=== PATIENT | female | born 1980 | race Caucasian/White ===

== ENCOUNTER 2018-06-26 03:13 | Emergency (ER) | payer BC ==
[~2018-06-26] VITALS: Ht 162.6 cm; Wt 65.8 kg
[2018-06-26 03:27] VITALS: BP_SYST 122
--- NOTE | 2018-06-26 03:27 | NUR ---
Patient to ER bed 7 to gown for evaluation. Side rails up. Report given to DMITRI Amaya.
--- NOTE | 2018-06-26 03:27 | NUR ---
Pt C/O pelvic pain x 4 days. Pt has hx of fibroids and ovarian cysts. Pain is 8/10 and has taken Tylenol with minimal relief. Pt denies any nausea, vomiting, or fever. Vitals are stable will continue to monitor.
--- NOTE | 2018-06-26 03:29 | NUR ---
ER Dr. Oleary at bedside examining patient.
--- NOTE | 2018-06-26 03:35 | NUR ---
# 20 gauge angiocath placed to LAC. Use of asceptic technique. Opsite placed over site. Blood return noted. Blood for lab drawn from site. Flushed with 10 cc of normal saline. No evidence of infiltration noted. Patient tolerated well.
--- NOTE | 2018-06-26 03:38 | NUR ---
Pt began to experience nausea. Dr. Oleary notified, Dean ODT given.
[2018-06-26] MEDS ORDERED: KETOROLAC TROMETHAMINE 30 MG VIAL IVP ONE (03:45)
[2018-06-26 03:52] LABS: BILIRUBIN,URINE NEGATIVE (NEGATIVE); BLOOD, URINE NEGATIVE (NEGATIVE); CLARITY/URINE CLEAR (CLEAR); COLOR,URINE YELLOW (YELLOW); GLUCOSE,URINE NEGATIVE (NEGATIVE); KETONES,URINE NEGATIVE (NEGATIVE); LEUKOCYTE ESTERASE ,URINE NEGATIVE (NEGATIVE); NITRITE, URINE NEGATIVE (NEGATIVE); PROTEIN URINE NEGATIVE (NEGATIVE); UROBILINOGEN,URINE 0.2 (0.2-1.0)
[2018-06-26] MEDS ORDERED: ONDANSETRON 4 MG ODT TAB ONE (03:55)
[2018-06-26] MEDS ORDERED: ONDANSETRON 4 MG ODT TAB PO ONE (04:00)
[2018-06-26 04:08] LABS: BASOPHILS % (AUTO) 0.3 % (0.0-2.0); EOSINOPHILS # (AUTO) 0.2 K/uL (0.0-0.4); EOSINOPHILS % (AUTO) 1.6 % (0.0-4.0); HEMATOCRIT 40.3 % (36-48); HEMOGLOBIN 13.6 g/dL (12.0-16.0); LYMPHOCYTES # (AUTO) 1.5 K/uL (1.0-5.5); LYMPHOCYTES % (AUTO) 11.8 % (20.5-51.5); MEAN CORPUSCULAR HEMOGLOBIN 30 pg (27-31); MEAN CORPUSCULAR HGB CONC 34 % (32-36); MEAN CORPUSCULAR VOLUME 89 fL (79.0-98.0); MONOCYTES # (AUTO) 0.8 K/uL (0.0-1.0); MONOCYTES % (AUTO) 6.1 % (1.7-9.3); NEUTROPHILS # (AUTO) 10.2 K/uL (1.8-7.7); NEUTROPHILS % (AUTO) 80.2 % (40.0-70.0); PLATELET COUNT (AUTO) 332 K/uL (130-430); RED BLOOD CELL COUNT(AUTO) 4.53 MIL/uL (4.2-6.2); RED CELL DISTRIBUTION WIDTH 12.7 % (9.0-15.0); WHITE BLOOD COUNT (AUTO) 12.7 K/uL (4.8-10.8)
[2018-06-26 04:15] LABS: CALCIUM 8.7 mg/dL (8.4-11.0); CREATININE 0.61 mg/dL (0.55-1.30); POTASSIUM 3.4 mmol/L (3.5-5.1)
[2018-06-26 04:20] LABS: ALBUMIN 3.6 g/dL (3.4-4.8); TOTAL BILIRUBIN 0.6 mg/dL (0.0-1.0)
--- NOTE | 2018-06-26 04:25 | NUR ---
Patient transported to radiology, accompanied by rad staff.
--- NOTE | 2018-06-26 05:05 | NUR ---
Returned from radiology, back to [facility].
--- NOTE | 2018-06-26 05:48 | NUR ---
ER Dr. Oleary at bedside explaining results to patient.
[2018-06-26 05:58] VITALS: BP_SYST 99
--- NOTE | 2018-06-26 05:58 | NUR ---
Patient given written and verbal discharge instructions and verbalizes understanding. ER MD discussed with patient the results and treatment provided. Patient in stable condition. ID arm band removed. IV catheter removed intact and dressing applied, no active bleeding. Rx of [place] given. Patient educated on pain management and to follow up with PMD. Pain Scale 2/10. Opportunity for questions provided and answered. Medication side effect fact sheet provided.
--- NOTE | 2018-06-26 12:14 | NUR ---
Radiology discrepancy: further details to US on final dictation, no further intervention needed per Dr. Ahmadi. Final copy of radiologists report faxed to Dr. Renata Castle to ensure that patient gets follow up [phone] confirmed fax number and that the patient is active at the office with edmundo.
== END 2018-06-26 05:58 | disposition home or self-care (01) ==
LOC: SED 03:13
DX: N83.209 Unspecified ovarian cyst, unspecified side (principal); D25.9 Leiomyoma of uterus, unspecified
CPT/HCPCS: 36415; 76830; 76857; 80053; 81003; 81025; 85025; 96374; 99284; J1885; Q0162

== ENCOUNTER 2019-01-21 16:10 | Emergency (ER) | payer BC ==
[~2019-01-21] VITALS: Ht 162.6 cm; Wt 65.8 kg
[2019-01-21 16:15] VITALS: BP_SYST 123
[2019-01-21] MEDS ORDERED: ACETAMINOPHEN 500 MG TABLET PO ONE (17:00)
[2019-01-21] MEDS ORDERED: KETOROLAC TROMETHAMINE 60 MG/2 ML VIAL IM ONE (17:00)
[2019-01-21 17:18] LABS: BASOPHILS % (AUTO) 0.3 % (0.0-2.0); EOSINOPHILS # (AUTO) 0.1 K/uL (0.0-0.4); EOSINOPHILS % (AUTO) 0.4 % (0.0-4.0); HEMATOCRIT 37.6 % (36-48); HEMOGLOBIN 12.8 g/dL (12.0-16.0); LYMPHOCYTES # (AUTO) 1.2 K/uL (1.0-5.5); LYMPHOCYTES % (AUTO) 9.2 % (20.5-51.5); MEAN CORPUSCULAR HEMOGLOBIN 30 pg (27-31); MEAN CORPUSCULAR HGB CONC 34 % (32-36); MEAN CORPUSCULAR VOLUME 88 fL (79.0-98.0); MONOCYTES % (AUTO) 7.8 % (1.7-9.3); NEUTROPHILS # (AUTO) 10.5 K/uL (1.8-7.7); NEUTROPHILS % (AUTO) 82.3 % (40.0-70.0); PLATELET COUNT (AUTO) 299 K/uL (130-430); RED BLOOD CELL COUNT(AUTO) 4.26 MIL/uL (4.2-6.2); RED CELL DISTRIBUTION WIDTH 13.3 % (9.0-15.0); WHITE BLOOD COUNT (AUTO) 12.8 K/uL (4.8-10.8)
[2019-01-21 17:20] LABS: BILIRUBIN,URINE NEGATIVE (NEGATIVE); BLOOD, URINE NEGATIVE (NEGATIVE); CLARITY/URINE HAZY (CLEAR); COLOR,URINE YELLOW (YELLOW); GLUCOSE,URINE NEGATIVE (NEGATIVE); KETONES,URINE NEGATIVE (NEGATIVE); LEUKOCYTE ESTERASE ,URINE NEGATIVE (NEGATIVE); NITRITE, URINE NEGATIVE (NEGATIVE); PROTEIN URINE NEGATIVE (NEGATIVE)
[2019-01-21 17:20] LABS: CALCIUM 8.6 mg/dL (8.4-11.0); CREATININE 0.8 mg/dL (0.55-1.30); POTASSIUM 3.8 mmol/L (3.5-5.1)
[2019-01-21 17:25] LABS: ALBUMIN 3.3 g/dL (3.4-4.8); TOTAL BILIRUBIN 0.6 mg/dL (0.0-1.0)
[2019-01-21 18:11] VITALS: BP_SYST 113
== END 2019-01-21 18:11 | disposition home or self-care (01) ==
LOC: SED 16:10
DX: K57.92 Diverticulitis of intestine, part unspecified, without perforation or abscess without bleeding (principal)
CPT/HCPCS: 36415; 71045; 74176; 80053; 81003; 83605; 85025; 87040; 87086; 96372; 99284; J1885

== ENCOUNTER 2021-02-26 04:34 | Emergency (ER) | payer BC ==
[~2021-02-26] VITALS: Ht 162.6 cm; Wt 70.8 kg
[2021-02-26 04:40] VITALS: BP_SYST 134
--- NOTE | 2021-02-26 04:41 | NUR ---
Came in ER ambulatory from home this 40 year old, female, AAOX4, breathing spontaneously at room air, not in distress noted. With chief complaints of abdomina pain radiating to the left since last night associated with nausea, known with Diverticulosis 2014, no other medical/no surgical history. No known allergy. Vital signs stable
--- NOTE | 2021-02-26 05:00 | NUR ---
# 20 gauge angiocath placed to right AC. Use of asceptic technique. Opsite placed over site. Blood return noted. Blood for lab drawn from site. Flushed with 10 cc of normal saline. No evidence of infiltration noted. Patient tolerated well.
[2021-02-26 05:28] LABS: BILIRUBIN,URINE NEGATIVE (NEGATIVE); BLOOD, URINE 3+ (NEGATIVE); CLARITY/URINE SL CLOUDY (CLEAR); COLOR,URINE YELLOW (YELLOW); GLUCOSE,URINE NEGATIVE (NEGATIVE); KETONES,URINE NEGATIVE (NEGATIVE); LEUKOCYTE ESTERASE ,URINE TRACE (NEGATIVE); NITRITE, URINE NEGATIVE (NEGATIVE); PH,URINE 5.5 (5.0-8.0); PROTEIN URINE 2+ (NEGATIVE); RED BLOOD CELL COUNT(AUTO) 4.71 MIL/uL (4.2-6.2); UROBILINOGEN,URINE 0.2 (0.2-1.0)
[2021-02-26 05:32] LABS: BASOPHILS # (AUTO) 0.1 K/uL (0.0-0.2); BASOPHILS % (AUTO) 0.7 % (0.0-2.0); EOSINOPHILS # (AUTO) 0.4 K/uL (0.0-0.4); EOSINOPHILS % (AUTO) 4.2 % (0.0-4.0); HEMOGLOBIN 14.1 g/dL (12.0-16.0); LYMPHOCYTES # (AUTO) 2.4 K/uL (1.0-5.5); MEAN CORPUSCULAR HEMOGLOBIN 30 pg (27-31); MEAN CORPUSCULAR HGB CONC 34 % (32-36); MEAN CORPUSCULAR VOLUME 87 fL (79.0-98.0); MONOCYTES # (AUTO) 0.6 K/uL (0.0-1.0); MONOCYTES % (AUTO) 5.7 % (1.7-9.3); NEUTROPHILS # (AUTO) 6.6 K/uL (1.8-7.7); NEUTROPHILS % (AUTO) 65.4 % (40.0-70.0); PLATELET COUNT (AUTO) 347 K/uL (130-430); RED CELL DISTRIBUTION WIDTH 13.5 % (9.0-15.0); WHITE BLOOD COUNT (AUTO) 10.1 K/uL (4.8-10.8)
--- NOTE | 2021-02-26 05:33 | NUR ---
Seen and examined by Dr. Kearney, ER Attending
[2021-02-26 05:34] LABS: BACTERIA,URINE FEW /HPF (None Seen); CALCIUM 8.4 mg/dL (8.4-11.0); CREATININE 0.88 mg/dL (0.55-1.30); POTASSIUM 3.4 mmol/L (3.5-5.1)
[2021-02-26 05:40] LABS: ALBUMIN 3.7 g/dL (3.4-4.8); TOTAL BILIRUBIN 0.3 mg/dL (0.0-1.0)
[2021-02-26] MEDS ORDERED: MORPHINE 4 MG INJ. 4 MG/ML VIAL IVP ONE (05:45)
[2021-02-26] MEDS ORDERED: PROCHLORPERAZINE EDISYLATE 10 MG/2 ML VIAL IVP ONE (05:45)
[2021-02-26] MEDS ORDERED: NACL 0.9% 1,000 ML IV ONE (05:45)
--- NOTE | 2021-02-26 05:55 | NUR ---
Medications given as ordered, health teaching provided and verbalized understanding
--- NOTE | 2021-02-26 06:37 | NUR ---
Patient transported to radiology via wheelchair in stable condition, accompanied by natural resources technician.
--- NOTE | 2021-02-26 06:51 | NUR ---
Returned from radiology, back to [facility].
--- NOTE | 2021-02-26 07:09 | NUR ---
Endorsed to day shift DMITRI Arciniega in stable condition for continuity of care.
--- NOTE | 2021-02-26 07:20 | NUR ---
report received from Kelsi RIZVI
[2021-02-26] MEDS ORDERED: NAPR-1172 PO (08:35)
[2021-02-26 08:52] VITALS: BP_SYST 134
--- NOTE | 2021-02-26 08:52 | NUR ---
Patient given written and verbal discharge instructions and verbalizes understanding. ER MD discussed with patient the results and treatment provided. Patient in stable condition. ID arm band removed. IV catheter removed intact and dressing applied, no active bleeding. Rx of Naproxen given. Patient educated on pain management and to follow up with PMD. Pain Scale 3/10. Opportunity for questions provided and answered. Medication side effect fact sheet provided.
== END 2021-02-26 08:52 | disposition home or self-care (01) ==
LOC: SED 04:34
DX: N94.6 Dysmenorrhea, unspecified (principal); R10.30 Lower abdominal pain, unspecified
CPT/HCPCS: 36415; 74176; 76376; 80053; 81000; 81025; 85025; 96361; 96374; 96375; 99285; J0780; J2270; J7030

== ENCOUNTER 2022-01-05 17:36 | Emergency (ER) | payer BC ==
[~2022-01-05] VITALS: Ht 162.6 cm; Wt 68.9 kg
[~2022-01-05 17:36] MED LIST: NAPR-1172 PO
[2022-01-05 17:54] VITALS: BP_SYST 134
--- NOTE | 2022-01-05 17:57 | NUR ---
PT CAME IN FROM HOME C/O TESTING COVID + WITH WORSENING HEADACHES. PT IS AMBULATORY, AAOX4, VSS
--- NOTE | 2022-01-05 17:57 | NUR ---
Patient to ER bed TENT to gown for evaluation. Side rails up.
--- NOTE | 2022-01-05 18:32 | NUR ---
ER at bedside examining patient.
[2022-01-05] MEDS ORDERED: KETOROLAC TROMETHAMINE 60 MG/2 ML VIAL IM ONE (19:15)
[2022-01-05] MEDS ORDERED: DEC4 PO (19:39)
[2022-01-05] MEDS ORDERED: ZINC50TA69 PO (19:39)
[2022-01-05] MEDS ORDERED: QUER1POW MC (19:39)
[2022-01-05] MEDS ORDERED: NAPR-690 PO (19:44)
[2022-01-05 19:46] VITALS: BP_SYST 132
--- NOTE | 2022-01-05 19:46 | NUR ---
Patient given written and verbal discharge instructions and verbalizes understanding. ER MD discussed with patient the results and treatment provided. Patient in stable condition. ID arm band removed. Rx of DECADRON, QUERCETIN DIHYDRATE, ZINC given. Patient educated on pain management and to follow up with PMD. Pain Scale 0/10 Opportunity for questions provided and answered. Medication side effect fact sheet provided.
== END 2022-01-05 19:46 | disposition home or self-care (01) ==
LOC: SED 17:36
DX: U07.1 COVID-19 (principal); R51.9 Headache, unspecified; R42 Dizziness and giddiness; Z79.899 Other long term (current) drug therapy
CPT/HCPCS: 99283; 96372; J1885

== ENCOUNTER 2022-02-12 21:54 | Emergency (ER) | payer BC ==
[~2022-02-12] VITALS: Ht 162.6 cm; Wt 70.8 kg
[~2022-02-12 21:54] MED LIST changes: +DEC4 PO; +NAPR-690 PO; +QUER1POW MC; +ZINC50TA69 PO
[2022-02-12 22:01] VITALS: BP_SYST 141
--- NOTE | 2022-02-12 22:10 | NUR ---
Patient to ER bed 04 to gown for evaluation. Side rails up.
--- NOTE | 2022-02-12 22:11 | NUR ---
Report given to Garth RIZVI
--- NOTE | 2022-02-12 22:28 | NUR ---
pt is aa&ox4. afebrile. pt came in for r hand swelling. per pt it was painful but she took Ibuprofen 800mg PO about an hr ago. pt also applied ice pack and kept r hand immobile. kept pt comfortable. xray's been done. awaiting to be seen by .
[2022-02-12 23:12] VITALS: BP_SYST 122
--- NOTE | 2022-02-12 23:19 | NUR ---
pt was cleared for d/c by . d/c instructions provided, pt verbalized understanding. acewrapped r hand. pt is in stable condition.
== END 2022-02-12 23:11 | disposition home or self-care (01) ==
LOC: SED 21:54
DX: S60.221A Contusion of right hand, initial encounter (principal); M79.641 Pain in right hand; Z79.899 Other long term (current) drug therapy; X58.XXXA Exposure to other specified factors, initial encounter; Y93.71 Activity, boxing; Y92.89 Other specified places as the place of occurrence of the external cause; Y99.8 Other external cause status
CPT/HCPCS: 99283

== ENCOUNTER 2022-08-26 09:43 | Emergency (ER) | payer BC ==
[~2022-08-26] VITALS: Ht 162.6 cm; Wt 72.6 kg
[2022-08-26 10:02] VITALS: BP_SYST 121
[2022-08-26 10:38] LABS: BASOPHILS % (AUTO) 0.4 % (0.0-2.0); EOSINOPHILS # (AUTO) 0.1 K/uL (0.0-0.4); EOSINOPHILS % (AUTO) 0.8 % (0.0-4.0); HEMATOCRIT 40.9 % (36-48); HEMOGLOBIN 13.7 g/dL (12.0-16.0); LYMPHOCYTES # (AUTO) 1.2 K/uL (1.0-5.5); LYMPHOCYTES % (AUTO) 15.4 % (20.5-51.5); MEAN CORPUSCULAR HEMOGLOBIN 29 pg (27-31); MEAN CORPUSCULAR HGB CONC 33 % (32-36); MEAN CORPUSCULAR VOLUME 85 fL (79.0-98.0); MONOCYTES # (AUTO) 0.3 K/uL (0.0-1.0); MONOCYTES % (AUTO) 3.4 % (1.7-9.3); NEUTROPHILS # (AUTO) 6.1 K/uL (1.8-7.7); PLATELET COUNT (AUTO) 351 K/uL (130-430); RED BLOOD CELL COUNT(AUTO) 4.79 MIL/uL (4.2-6.2); RED CELL DISTRIBUTION WIDTH 14.5 % (9.0-15.0); WHITE BLOOD COUNT (AUTO) 7.7 K/uL (4.8-10.8)
[2022-08-26 12:01] LABS: BILIRUBIN,URINE NEGATIVE (NEGATIVE); BLOOD, URINE 3+ (NEGATIVE); CLARITY/URINE TURBID (CLEAR); COLOR,URINE RED (YELLOW); GLUCOSE,URINE NEGATIVE (NEGATIVE); KETONES,URINE TRACE (NEGATIVE); LEUKOCYTE ESTERASE ,URINE NEGATIVE (NEGATIVE); NITRITE, URINE POSITIVE (NEGATIVE); PH,URINE 7.5 (5.0-8.0); PROTEIN URINE 1+ (NEGATIVE); UROBILINOGEN,URINE 0.2 (0.2-1.0)
[2022-08-26 12:13] VITALS: BP_SYST 116
[2022-08-26 12:14] LABS: BACTERIA,URINE MODERATE /HPF (None Seen); RBC,URINE 50-80 /HPF (0-3)
== END 2022-08-26 12:13 | disposition home or self-care (01) ==
LOC: SED 09:43
DX: N93.8 Other specified abnormal uterine and vaginal bleeding (principal); Z79.899 Other long term (current) drug therapy
CPT/HCPCS: 36415; 81000; 81025; 84702; 85025; 85610-TC; 85730-TC; 86900; 86901; 87086; 99283

== ENCOUNTER 2023-02-17 00:53 | Emergency (ER) | payer BC ==
[~2023-02-17] VITALS: Ht 162.6 cm; Wt 69.9 kg
[2023-02-17 01:08] VITALS: PULSE 79; RESP 16; TEMP 96.7; O2SAT 98
[2023-02-17 02:14] LABS: BASOPHILS % (AUTO) 0.4 % (0.0-2.0); EOSINOPHILS # (AUTO) 0.1 K/uL (0.0-0.4); EOSINOPHILS % (AUTO) 0.7 % (0.0-4.0); HEMATOCRIT 40.5 % (36-48); HEMOGLOBIN 13.5 g/dL (12.0-16.0); LYMPHOCYTES # (AUTO) 1.4 K/uL (1.0-5.5); LYMPHOCYTES % (AUTO) 13.7 % (20.5-51.5); MEAN CORPUSCULAR HEMOGLOBIN 28 pg (27-31); MEAN CORPUSCULAR HGB CONC 33 % (32-36); MEAN CORPUSCULAR VOLUME 83 fL (79.0-98.0); MONOCYTES # (AUTO) 0.6 K/uL (0.0-1.0); MONOCYTES % (AUTO) 5.9 % (1.7-9.3); NEUTROPHILS % (AUTO) 79.3 % (40.0-70.0); PLATELET COUNT (AUTO) 370 K/uL (130-430); WHITE BLOOD COUNT (AUTO) 10.1 K/uL (4.8-10.8)
[2023-02-17] MEDS ORDERED: KETOROLAC TROMETHAMINE 30 MG VIAL IM ONE (02:15)
[2023-02-17 02:34] LABS: CLARITY/URINE CLOUDY (CLEAR); COLOR,URINE RED (YELLOW)
[2023-02-17 02:35] LABS: BILIRUBIN,URINE NEGATIVE (NEGATIVE); BLOOD, URINE 3+ (NEGATIVE); GLUCOSE,URINE NEGATIVE (NEGATIVE); KETONES,URINE NEGATIVE (NEGATIVE); LEUKOCYTE ESTERASE ,URINE 1+ (NEGATIVE); NITRITE, URINE POSITIVE (NEGATIVE); PROTEIN URINE 1+ (NEGATIVE)
[2023-02-17 02:37] LABS: BACTERIA,URINE MODERATE /HPF (None Seen); RBC,URINE >100 /HPF (0-3)
[2023-02-17 03:00] LABS: CALCIUM 8.4 mg/dL (8.4-11.0); CREATININE 0.77 mg/dL (0.55-1.30)
[2023-02-17 03:05] LABS: ALBUMIN 3.6 g/dL (3.4-4.8); TOTAL BILIRUBIN 0.7 mg/dL (0.0-1.0); TOTAL PROTEIN, SERUM 7.2 g/dL (6.4-8.3)
[2023-02-17 06:12] VITALS: PULSE 79; RESP 16; TEMP 96.7; O2SAT 98
[2023-02-17] MEDS ORDERED: NITR-85 PO (07:38)
== END 2023-02-17 06:12 | disposition left against medical advice (07) ==
LOC: SED 00:53
DX: K57.92 Diverticulitis of intestine, part unspecified, without perforation or abscess without bleeding (principal); K66.8 Other specified disorders of peritoneum; R11.0 Nausea; R30.0 Dysuria; Z79.899 Other long term (current) drug therapy
CPT/HCPCS: 99285; 74176; 80053; 81000; 85025; 87086; 36415; 76376; 81025; 96372; J1885

== ENCOUNTER 2023-02-17 07:21 | Inpatient (IN) | payer BC ==
[~2023-02-17] VITALS: Ht 162.6 cm; Wt 69.9 kg
[2023-02-17 07:26] VITALS: BP_SYST 143; PULSE 93; RESP 20; TEMP 98; O2SAT 96
[2023-02-17] MEDS ORDERED: NITR-85 PO (07:38)
[2023-02-17] MEDS ORDERED: metroNIDAZOLE 500 mg/NS 100 ML IV ONE (08:00)
[2023-02-17] MEDS ORDERED: PIPERACILLIN/TAZO 3.375 GM in NS 50 ML IV ONE (09:00)
[2023-02-17] MEDS ORDERED: PIPERACILLIN/TAZOBACTAM 3.375 GM/VIAL (ZOSYN) IV ONE (09:56)
[2023-02-17 10:35] LABS: PROTHROMBIN TIME 10.2 SECS (9.5-12.5)
[2023-02-17] MEDS: LR 1,000 ML IV SCH ×2 (10:55→16:24)
[2023-02-17] MEDS ORDERED: ONDANSETRON HCL 4 MG/2 ML VIAL IVP PRN (12:15)
[2023-02-17] MEDS ORDERED: HYDROmorphone 1 MG/ML INJ. CARTRIDGE IM PRN (12:15)
[2023-02-17] MEDS ORDERED: NALOXONE HCL 0.4 MG/ML AMP (NARCAN) IVP PRN (12:15)
[2023-02-17] MEDS: ACETAMINOPHEN 500 MG TABLET PO PRN ×2 (15:20→21:55)
[2023-02-17 16:11] VITALS: BP_SYST 125; PULSE 70; RESP 17; TEMP 97.8; O2SAT 98
[2023-02-17 16:22] VITALS: BP_SYST 125; PULSE 70; RESP 18; TEMP 97.8; O2SAT 98
[2023-02-17] MEDS: PIPERACILLIN/TAZO 3.375 GM in NS 50 ML IV SCH (18:21)
[2023-02-17] MEDS ORDERED: MORPHINE 2 MG/ML INJ. SYRINGE IVP PRN (21:45)
[2023-02-17] MEDS: metroNIDAZOLE 500 mg/NS 100 ML IV SCH (22:11)
[2023-02-18 00:10] VITALS: BP_SYST 130; PULSE 69; RESP 15; TEMP 96.2; O2SAT 97
[2023-02-18] MEDS: LR 1,000 ML IV SCH ×4 (00:10→21:12)
[2023-02-18 02:52] VITALS: O2SAT 98
[2023-02-18] MEDS: PIPERACILLIN/TAZO 3.375 GM in NS 50 ML IV SCH ×3 (03:10→18:24)
[2023-02-18] MEDS: metroNIDAZOLE 500 mg/NS 100 ML IV SCH ×3 (06:19→21:13)
[2023-02-18 07:25] LABS: CALCIUM 8.4 mg/dL (8.4-11.0); CREATININE 0.76 mg/dL (0.55-1.30); POTASSIUM 3.7 mmol/L (3.5-5.1)
[2023-02-18 07:28] LABS: BASOPHILS % (AUTO) 0.3 % (0.0-2.0); EOSINOPHILS # (AUTO) 0.1 K/uL (0.0-0.4); EOSINOPHILS % (AUTO) 0.6 % (0.0-4.0); HEMATOCRIT 38.1 % (36-48); HEMOGLOBIN 13.1 g/dL (12.0-16.0); LYMPHOCYTES # (AUTO) 1.4 K/uL (1.0-5.5); LYMPHOCYTES % (AUTO) 15.8 % (20.5-51.5); MEAN CORPUSCULAR HEMOGLOBIN 29 pg (27-31); MEAN CORPUSCULAR HGB CONC 34 % (32-36); MEAN CORPUSCULAR VOLUME 83 fL (79.0-98.0); MONOCYTES # (AUTO) 0.6 K/uL (0.0-1.0); MONOCYTES % (AUTO) 6.4 % (1.7-9.3); NEUTROPHILS # (AUTO) 6.8 K/uL (1.8-7.7); NEUTROPHILS % (AUTO) 76.9 % (40.0-70.0); PLATELET COUNT (AUTO) 342 K/uL (130-430); RED BLOOD CELL COUNT(AUTO) 4.57 MIL/uL (4.2-6.2); RED CELL DISTRIBUTION WIDTH 14.8 % (9.0-15.0); WHITE BLOOD COUNT (AUTO) 8.8 K/uL (4.8-10.8)
[2023-02-18] MEDS: MORPHINE 4 MG INJ. 4 MG/ML VIAL IVP PRN ×2 (11:29→22:12)
[2023-02-18 12:00] VITALS: BP_SYST 125; PULSE 72; RESP 18; TEMP 99.5
[2023-02-18 12:28] LABS: BASOPHILS % (AUTO) 0.3 % (0.0-2.0); EOSINOPHILS % (AUTO) 0.2 % (0.0-4.0); HEMATOCRIT 37.4 % (36-48); HEMOGLOBIN 12.5 g/dL (12.0-16.0); LYMPHOCYTES # (AUTO) 1.2 K/uL (1.0-5.5); MEAN CORPUSCULAR HEMOGLOBIN 28 pg (27-31); MEAN CORPUSCULAR HGB CONC 33 % (32-36); MEAN CORPUSCULAR VOLUME 83 fL (79.0-98.0); MONOCYTES # (AUTO) 0.6 K/uL (0.0-1.0); MONOCYTES % (AUTO) 5.5 % (1.7-9.3); NEUTROPHILS # (AUTO) 8.7 K/uL (1.8-7.7); PLATELET COUNT (AUTO) 337 K/uL (130-430); RED BLOOD CELL COUNT(AUTO) 4.52 MIL/uL (4.2-6.2); RED CELL DISTRIBUTION WIDTH 14.7 % (9.0-15.0); WHITE BLOOD COUNT (AUTO) 10.5 K/uL (4.8-10.8)
[2023-02-18 19:00] VITALS: BP_SYST 124; PULSE 74; RESP 16; TEMP 99.2; O2SAT 96
[2023-02-18 20:00] VITALS: BP_SYST 124; PULSE 74; RESP 16; TEMP 99.2; O2SAT 96
[2023-02-19] VITALS (7 sets, daily range): BP systolic 111–127; PULSE 72–93; RESP 16–18; TEMP 98–99.2; O2SAT 96–98
[2023-02-19] MEDS: PIPERACILLIN/TAZO 3.375 GM in NS 50 ML IV SCH ×3 (02:47→19:47)
[2023-02-19] MEDS: LR 1,000 ML IV SCH ×3 (04:24→20:55)
[2023-02-19] MEDS: metroNIDAZOLE 500 mg/NS 100 ML IV SCH ×3 (06:06→22:47)
[2023-02-19 08:00] LABS: BASOPHILS % (AUTO) 0.2 % (0.0-2.0); EOSINOPHILS % (AUTO) 0.2 % (0.0-4.0); HEMOGLOBIN 12.1 g/dL (12.0-16.0); LYMPHOCYTES % (AUTO) 9.4 % (20.5-51.5); MEAN CORPUSCULAR HEMOGLOBIN 28 pg (27-31); MEAN CORPUSCULAR HGB CONC 34 % (32-36); MEAN CORPUSCULAR VOLUME 83 fL (79.0-98.0); MONOCYTES # (AUTO) 0.6 K/uL (0.0-1.0); MONOCYTES % (AUTO) 5.6 % (1.7-9.3); NEUTROPHILS # (AUTO) 9.1 K/uL (1.8-7.7); NEUTROPHILS % (AUTO) 84.6 % (40.0-70.0); PLATELET COUNT (AUTO) 325 K/uL (130-430); RED BLOOD CELL COUNT(AUTO) 4.33 MIL/uL (4.2-6.2); RED CELL DISTRIBUTION WIDTH 14.6 % (9.0-15.0); WHITE BLOOD COUNT (AUTO) 10.7 K/uL (4.8-10.8)
[2023-02-19 08:14] LABS: CALCIUM 7.9 mg/dL (8.4-11.0); CREATININE 0.77 mg/dL (0.55-1.30); POTASSIUM 3.7 mmol/L (3.5-5.1)
[2023-02-19] MEDS ORDERED: DIATR MEGLU/DIATRIZ SOD 30 ML SOLUTION PO ONE (12:31)
[2023-02-19] MEDS ORDERED: DEXTROSE 50% JECT 50 ML DISP.SYRIN IVP PRN (14:15)
[2023-02-19] MEDS ORDERED: INSULIN REGULAR, HUMAN 100 UNITS/ML, 3 ML VIAL (humuLIN R) SUBCUT PRN (14:15)
[2023-02-19] MEDS: ACETAMINOPHEN 500 MG TABLET PO PRN (23:04)
[2023-02-20] VITALS: BP_SYST 143; PULSE 76; RESP 18; TEMP 98.6; O2SAT 97
[2023-02-20] MEDS: PIPERACILLIN/TAZO 3.375 GM in NS 50 ML IV SCH ×2 (03:12→10:05)
[2023-02-20 05:40] LABS: BASOPHILS % (AUTO) 0.4 % (0.0-2.0); EOSINOPHILS # (AUTO) 0.1 K/uL (0.0-0.4); EOSINOPHILS % (AUTO) 0.8 % (0.0-4.0); HEMATOCRIT 34.9 % (36-48); HEMOGLOBIN 11.8 g/dL (12.0-16.0); LYMPHOCYTES # (AUTO) 1.8 K/uL (1.0-5.5); LYMPHOCYTES % (AUTO) 20.7 % (20.5-51.5); MEAN CORPUSCULAR HEMOGLOBIN 28 pg (27-31); MEAN CORPUSCULAR HGB CONC 34 % (32-36); MEAN CORPUSCULAR VOLUME 82 fL (79.0-98.0); MONOCYTES # (AUTO) 0.8 K/uL (0.0-1.0); MONOCYTES % (AUTO) 9.3 % (1.7-9.3); NEUTROPHILS # (AUTO) 5.9 K/uL (1.8-7.7); NEUTROPHILS % (AUTO) 68.8 % (40.0-70.0); PLATELET COUNT (AUTO) 380 K/uL (130-430); RED BLOOD CELL COUNT(AUTO) 4.26 MIL/uL (4.2-6.2); RED CELL DISTRIBUTION WIDTH 15.1 % (9.0-15.0); WHITE BLOOD COUNT (AUTO) 8.6 K/uL (4.8-10.8)
[2023-02-20] MEDS: LR 1,000 ML IV SCH ×2 (05:51→09:59)
[2023-02-20 06:06] LABS: ALBUMIN 2.8 g/dL (3.4-4.8); CALCIUM 8.3 mg/dL (8.4-11.0); CREATININE 0.55 mg/dL (0.55-1.30); PHOSPHORUS 2.8 mg/dL (2.7-4.5); POTASSIUM 3.7 mmol/L (3.5-5.1); TOTAL BILIRUBIN 0.6 mg/dL (0.0-1.0); TOTAL PROTEIN, SERUM 6.5 g/dL (6.4-8.3)
[2023-02-20] MEDS: metroNIDAZOLE 500 mg/NS 100 ML IV SCH (06:42)
[2023-02-20 07:45] VITALS: O2SAT 97
[2023-02-20 08:01] VITALS: BP_SYST 129; PULSE 78; RESP 18; TEMP 97.4; O2SAT 98
[2023-02-20] MEDS: ACETAMINOPHEN 500 MG TABLET PO PRN (12:55)
[2023-02-20 13:02] VITALS: BP_SYST 125; PULSE 81; RESP 18; TEMP 97.8
[2023-02-20] MEDS ORDERED: LEVO-62 PO (13:36)
[2023-02-20] MEDS ORDERED: METR-343 PO (13:36)
[2023-02-20] MEDS ORDERED: MVI IV SCH ×6 (21:00)
[2023-02-20] MEDS ORDERED: POTASSIUM CHLORIDE IV SCH ×6 (21:00)
[2023-02-20] MEDS ORDERED: TRACE ELEMENTS IV SCH ×6 (21:00)
[2023-02-20] MEDS ORDERED: [UNRECOGNIZED DRUG - OTHER] IV SCH ×6 (21:00)
[2023-02-20] MEDS ORDERED: LR 1,000 ML IV SCH (21:00)
[2023-02-20] MEDS ORDERED: FAT EMULSIONS 250 ML IV SCH (21:00)
[2023-02-20] MEDS ORDERED: TPN PERIPHERAL IV SCH ×6 (21:00)
[2023-02-20] MEDS ORDERED: *PPN PER PHARMACY XX PRN (21:00)
== END 2023-02-20 16:20 | disposition home or self-care (01) | DRG 392 ==
LOC: SED 07:21 → STU 08:43 → SMU 02-19 23:31
PROVIDERS: ADMIT Specialist; ATTEND Specialist
DX: K57.80 Diverticulitis of intestine, part unspecified, with perforation and abscess without bleeding (principal); Z79.899 Other long term (current) drug therapy
CPT/HCPCS: 36415; 71045; 74018; 76376; 80048; 80053; 81000; 81025; 82565; 82962; 83605; 84100; 84478; 85025; 85610-TC; 87040; 87086; 93306; 96365; 96367; 96368; 96372; 99285; G0378; J1885; J1956; J2270; J2543; J3480; J3490; J7120; Q9964

== ENCOUNTER 2024-01-27 18:39 | Emergency (ER) | payer BC ==
[~2024-01-27] VITALS: Ht 162.6 cm; Wt 69.4 kg
[~2024-01-27 18:39] MED LIST changes: -DEC4 PO; +LEVO-62 PO; +METR-343 PO; -NAPR-1172 PO; -NAPR-690 PO; -QUER1POW MC
[2024-01-27 19:10] VITALS: BP_SYST 118; PULSE 83; RESP 18; TEMP 97.3; O2SAT 99
[2024-01-27 19:33] LABS: BASOPHILS # (AUTO) 0.1 K/uL (0.0-0.2); BASOPHILS % (AUTO) 0.6 % (0.0-2.0); EOSINOPHILS # (AUTO) 0.2 K/uL (0.0-0.4); EOSINOPHILS % (AUTO) 1.9 % (0.0-4.0); HEMATOCRIT 39.6 % (36-48); HEMOGLOBIN 13.4 g/dL (12.0-16.0); LYMPHOCYTES # (AUTO) 1.6 K/uL (1.0-5.5); LYMPHOCYTES % (AUTO) 15.7 % (20.5-51.5); MEAN CORPUSCULAR HEMOGLOBIN 29 pg (27-31); MEAN CORPUSCULAR HGB CONC 34 % (32-36); MEAN CORPUSCULAR VOLUME 84 fL (79.0-98.0); MONOCYTES # (AUTO) 0.7 K/uL (0.0-1.0); MONOCYTES % (AUTO) 7.1 % (1.7-9.3); NEUTROPHILS # (AUTO) 7.7 K/uL (1.8-7.7); NEUTROPHILS % (AUTO) 74.7 % (40.0-70.0); PLATELET COUNT (AUTO) 368 K/uL (130-430); RED BLOOD CELL COUNT(AUTO) 4.71 MIL/uL (4.2-6.2); RED CELL DISTRIBUTION WIDTH 14.5 % (9.0-15.0); WHITE BLOOD COUNT (AUTO) 10.3 K/uL (4.8-10.8)
[2024-01-27 19:52] LABS: ALBUMIN 3.5 g/dL (3.4-4.8); CALCIUM 8.5 mg/dL (8.4-11.0); CREATININE 0.87 mg/dL (0.55-1.30); POTASSIUM 3.5 mmol/L (3.5-5.1); TOTAL BILIRUBIN 0.3 mg/dL (0.0-1.0)
[2024-01-27 20:00] LABS: SERUM HCG (QUALITATIVE) NEGATIVE (NEGATIVE)
[2024-01-27 20:02] LABS: BILIRUBIN,DIRECT 0.1 mg/dL (0.0-0.3)
[2024-01-27 20:05] LABS: INR 0.9 (0.8-1.2); PROTHROMBIN TIME 9.8 SECS (9.5-12.5)
[2024-01-27] MEDS ORDERED: AMOX-423 PO (20:52)
[2024-01-27] MEDS ORDERED: IBUP-1969 PO (20:52)
[2024-01-27] MEDS: AMOXICILLIN/CLAVULANATE POTASSIUM 500 MG TABLET PO ONE (21:04)
[2024-01-27] MEDS: IBUPROFEN 800 MG TABLET PO ONE (21:04)
[2024-01-27 21:09] VITALS: BP_SYST 121; PULSE 87; RESP 16; TEMP 97.6; O2SAT 98
[2024-01-27 23:29] LABS: BILIRUBIN,URINE NEGATIVE (NEGATIVE); BLOOD, URINE NEGATIVE (NEGATIVE); COLOR,URINE YELLOW (YELLOW); GLUCOSE,URINE NEGATIVE (NEGATIVE); KETONES,URINE NEGATIVE (NEGATIVE); LEUKOCYTE ESTERASE ,URINE NEGATIVE (NEGATIVE); NITRITE, URINE NEGATIVE (NEGATIVE); PH,URINE 6.5 (5.0-8.0); PROTEIN URINE NEGATIVE (NEGATIVE)
[2024-01-27 23:41] LABS: CLARITY/URINE CLEAR (CLEAR)
== END 2024-01-27 21:09 | disposition home or self-care (01) ==
LOC: SED 18:39
DX: K57.92 Diverticulitis of intestine, part unspecified, without perforation or abscess without bleeding (principal); R10.32 Left lower quadrant pain; Z79.899 Other long term (current) drug therapy; Z79.2 Long term (current) use of antibiotics
CPT/HCPCS: 36415; 80048; 80076; 81001; 81003; 81025; 82150; 83605; 83690; 84703; 85025; 85610; 85730; 99284

== ENCOUNTER 2024-02-24 20:15 | Inpatient (IN) | payer BC ==
[~2024-02-24] VITALS: Ht 162.6 cm; Wt 72.6 kg
[~2024-02-24 20:15] MED LIST changes: +AMOX-423 PO; +IBUP-1969 PO
[2024-02-24 21:06] VITALS: BP_SYST 120; PULSE 85; RESP 14; TEMP 99; O2SAT 100
--- NOTE | 2024-02-24 21:10 | NUR ---
WAS HERE LAST MONTH FOR DIVERTICULITIS. FINISHED COURSE OF ABT. STATES PAIN DIMINISHED BUT HAS NOW GOTTEN STRONGER. LEFT LOWER AND UPPER ABD. DENIES N/V/D. HAS BEEN DEALING WITH CONSTIPATION WELL. PT HAS HX OF DIVERTICULITIS. VSS IN TRIAGE
--- NOTE | 2024-02-24 21:11 | NUR ---
Patient triaged and placed in waiting room. VSS and patient appears in no acute distress at this time. Accompanied by SELF, awaiting available bed, and MD notified of need for MSE.
[2024-02-24 23:21] LABS: BASOPHILS % (AUTO) 0.4 % (0.0-2.0); EOSINOPHILS # (AUTO) 0.2 K/uL (0.0-0.4); EOSINOPHILS % (AUTO) 1.3 % (0.0-4.0); HEMATOCRIT 38.8 % (36-48); HEMOGLOBIN 13.1 g/dL (12.0-16.0); LYMPHOCYTES # (AUTO) 2.1 K/uL (1.0-5.5); LYMPHOCYTES % (AUTO) 16.7 % (20.5-51.5); MEAN CORPUSCULAR HEMOGLOBIN 29 pg (27-31); MEAN CORPUSCULAR HGB CONC 34 % (32-36); MEAN CORPUSCULAR VOLUME 85 fL (79.0-98.0); MONOCYTES # (AUTO) 0.9 K/uL (0.0-1.0); MONOCYTES % (AUTO) 7.1 % (1.7-9.3); NEUTROPHILS # (AUTO) 9.2 K/uL (1.8-7.7); NEUTROPHILS % (AUTO) 74.5 % (40.0-70.0); PLATELET COUNT (AUTO) 360 K/uL (130-430); RED BLOOD CELL COUNT(AUTO) 4.58 MIL/uL (4.2-6.2); RED CELL DISTRIBUTION WIDTH 14.6 % (9.0-15.0); WHITE BLOOD COUNT (AUTO) 12.4 K/uL (4.8-10.8)
[2024-02-24 23:37] LABS: CALCIUM 8.3 mg/dL (8.4-11.0); CREATININE 0.75 mg/dL (0.55-1.30); POTASSIUM 3.9 mmol/L (3.5-5.1)
[2024-02-24] MEDS ORDERED: PIPERACILLIN/TAZOBACTAM 3.375 GM/VIAL (ZOSYN) IV ONE (23:58)
--- NOTE | 2024-02-24 23:59 | NUR ---
NOTIFIED ALDO TO CALL [facility] FOR AUTHORIZATION OR TO GET PATIENT TRANSFERED
[2024-02-25] MEDS: PIPERACILLIN/TAZO 3.375 GM in NS 50 ML IV ONE (01:10)
--- NOTE | 2024-02-25 02:54 | NUR ---
Admit bed requested Patient will be admitted to care of Dr. WATSON. Admitted to MED SURG unit. Diagnosis RETICULITIS Inpatient (Yes or No) YES Observation (Yes or No) NO Orientation concerns or request close to nursing station (Yes or No) NO Covid Status NEGATIVE On vent or bipap NO Isolation requirements NONE Needs a sitter NO From Home (Yes or if No enter name of facility) YES Requires Dialysis (Yes or No) NO Med Rec Completed (Yes of No) YES
--- NOTE | 2024-02-25 03:03 | NUR ---
Medication reconciliation completed with information provided by PATIENT. Any prior medication reconciliation on file was reviewed and corrected. PATIENT STATED SHE IS CURRENTLY NOT TAKING ANY HOME MEDICATIONS.
[2024-02-25] MEDS: D5/0.45 NS 1,000 ML IV SCH (04:16)
--- NOTE | 2024-02-25 07:15 | NUR ---
Received SBAR hand off report from Derek (vice president quality)
--- NOTE | 2024-02-25 08:57 | NUR ---
Patient will be admitted to care of Dr. May. Admitted to med surg unit. Will go to room 125B. Belongings list completed. Complete and up to date summary report printed. SBAR report to be given to Maame Burden RN with opportunity for questions.
[2024-02-25 09:12] LABS: BILIRUBIN,URINE NEGATIVE (NEGATIVE); BLOOD, URINE NEGATIVE (NEGATIVE); COLOR,URINE YELLOW (YELLOW); GLUCOSE,URINE NEGATIVE (NEGATIVE); KETONES,URINE NEGATIVE (NEGATIVE); LEUKOCYTE ESTERASE ,URINE 2+ (NEGATIVE); NITRITE, URINE NEGATIVE (NEGATIVE); PH,URINE 7.5 (5.0-8.0); PROTEIN URINE NEGATIVE (NEGATIVE); UROBILINOGEN,URINE 0.2 (0.2-1.0)
[2024-02-25 09:14] LABS: CLARITY/URINE SLIGHTLY HAZY (CLEAR)
[2024-02-25 09:22] LABS: BACTERIA,URINE None Seen /HPF (None Seen); RBC,URINE 0-3 /HPF (0-3)
[2024-02-25] MEDS ORDERED: MORPHINE 2 MG/ML INJ. SYRINGE IVP PRN (10:00)
[2024-02-25] MEDS ORDERED: LORazepam 2 MG/ML VIAL IVP PRN (10:00)
[2024-02-25] MEDS ORDERED: MORPHINE 4 MG INJ. 4 MG/ML VIAL IVP PRN (10:00)
[2024-02-25] MEDS ORDERED: ONDANSETRON HCL 4 MG/2 ML VIAL IVP PRN (10:00)
[2024-02-25] MEDS ORDERED: NALOXONE HCL 0.4 MG/ML AMP (NARCAN) IVP PRN (10:00)
--- NOTE | 2024-02-25 10:00 | NUR ---
INITIAL ROUNDS PATIENT RECEIVED FROM ER. AWAKE ALERT AMBULATORY. PAIN IS CONTROLLED AT THIS TIME. IVF INFUSING WELL. ORIENTED TO ROOM SET UP AND CALL LIGHT.
[2024-02-25 10:38] VITALS: BP_SYST 116; PULSE 69; RESP 17; TEMP 98.2; O2SAT 98
[2024-02-25 10:39] VITALS: BP_SYST 116; PULSE 69; RESP 17; TEMP 98.2; O2SAT 98
[2024-02-25 10:41] LABS: BASOPHILS # (AUTO) 0.1 K/uL (0.0-0.2); BASOPHILS % (AUTO) 0.6 % (0.0-2.0); EOSINOPHILS # (AUTO) 0.2 K/uL (0.0-0.4); EOSINOPHILS % (AUTO) 2.2 % (0.0-4.0); HEMATOCRIT 37.6 % (36-48); HEMOGLOBIN 12.7 g/dL (12.0-16.0); LYMPHOCYTES # (AUTO) 1.5 K/uL (1.0-5.5); LYMPHOCYTES % (AUTO) 18.6 % (20.5-51.5); MEAN CORPUSCULAR HEMOGLOBIN 29 pg (27-31); MEAN CORPUSCULAR HGB CONC 34 % (32-36); MEAN CORPUSCULAR VOLUME 85 fL (79.0-98.0); MONOCYTES # (AUTO) 0.6 K/uL (0.0-1.0); MONOCYTES % (AUTO) 6.9 % (1.7-9.3); NEUTROPHILS # (AUTO) 5.8 K/uL (1.8-7.7); NEUTROPHILS % (AUTO) 71.7 % (40.0-70.0); PLATELET COUNT (AUTO) 330 K/uL (130-430); RED CELL DISTRIBUTION WIDTH 14.5 % (9.0-15.0); WHITE BLOOD COUNT (AUTO) 8.2 K/uL (4.8-10.8)
[2024-02-25 10:56] LABS: CALCIUM 8.5 mg/dL (8.4-11.0); CREATININE 0.65 mg/dL (0.55-1.30); POTASSIUM 3.8 mmol/L (3.5-5.1)
--- NOTE | 2024-02-25 12:45 | NUR ---
ROUNDS PATIENT IN BED SLEEPING. IVF INFUSING WELL. WAITING FOR ANTIBIOTIC FROM PHARMACY.
[2024-02-25] MEDS: metroNIDAZOLE 500 mg/NS 100 ML IV SCH (15:57)
[2024-02-25 16:12] VITALS: BP_SYST 106; PULSE 72; RESP 16; TEMP 98.8; O2SAT 98
--- NOTE | 2024-02-25 18:24 | NUR ---
CLOSING NOTES PATIENT IN BED. DENIES PAIN. IVF INFUSING WELL.
[2024-02-25 20:00] VITALS: BP_SYST 110; PULSE 70; RESP 18; TEMP 98.4; O2SAT 99
--- NOTE | 2024-02-25 20:00 | NUR ---
OPENING NOTE: PATIENT AAOx4 VERBAL AND ABLE TO MAKE WANTS AND NEEDS KNOWN. DENIES PAIN AT THIS TIME. POC GONE OVER WITH OPPORTUNITY FOR QUESTIONS. BED LOCKED AND IN LOWEST POSITION WITH CALL LIGHT WITHIN REACH.
[2024-02-26] VITALS: BP_SYST 112; PULSE 70; RESP 17; TEMP 97.9; O2SAT 100
--- NOTE | 2024-02-26 04:19 | NUR ---
CONSULTATION PAGED/CALLED Reason for Consultation: RETICULITIS Person Who was Notified: JESSIAC Consulting Physician: DR SCHMID LEAD MACHINIST FOR DR BRENNER Needle Setter Specialty: GI Ordering Physician: DR WALTER Dozier
--- NOTE | 2024-02-26 04:28 | NUR ---
CONSULTATION PAGED/CALLED Reason for Consultation: RETICULITIS Person Who was Notified: JESSICA Consulting Physician: CANDELARIO RANGEL Construction Skills Teacher Specialty: ID Ordering Physician: DR WALTER Dozier
[2024-02-26 05:42] LABS: BASOPHILS % (AUTO) 0.5 % (0.0-2.0); EOSINOPHILS # (AUTO) 0.2 K/uL (0.0-0.4); EOSINOPHILS % (AUTO) 3.1 % (0.0-4.0); HEMATOCRIT 37.3 % (36-48); HEMOGLOBIN 12.7 g/dL (12.0-16.0); LYMPHOCYTES # (AUTO) 1.7 K/uL (1.0-5.5); MEAN CORPUSCULAR HEMOGLOBIN 29 pg (27-31); MEAN CORPUSCULAR HGB CONC 34 % (32-36); MEAN CORPUSCULAR VOLUME 85 fL (79.0-98.0); MONOCYTES # (AUTO) 0.6 K/uL (0.0-1.0); MONOCYTES % (AUTO) 7.4 % (1.7-9.3); NEUTROPHILS # (AUTO) 5.2 K/uL (1.8-7.7); PLATELET COUNT (AUTO) 344 K/uL (130-430); RED BLOOD CELL COUNT(AUTO) 4.39 MIL/uL (4.2-6.2); RED CELL DISTRIBUTION WIDTH 14.3 % (9.0-15.0); WHITE BLOOD COUNT (AUTO) 7.8 K/uL (4.8-10.8)
[2024-02-26 06:07] LABS: CALCIUM 8.5 mg/dL (8.4-11.0); CREATININE 0.74 mg/dL (0.55-1.30); POTASSIUM 3.7 mmol/L (3.5-5.1); TOTAL BILIRUBIN 0.6 mg/dL (0.0-1.0); TOTAL PROTEIN, SERUM 6.7 g/dL (6.4-8.3)
--- NOTE | 2024-02-26 06:52 | NUR ---
CLOSING NOTE: WILL GIVE BEDSIDE REPORT TO ONCOMING SHIFT. PATIENT IN STABLE CONDITION. BED LOCKED AND IN LOWEST POSITION WITH CALL LIGHT WITHIN REACH.
[2024-02-26 08:56] VITALS: BP_SYST 112; PULSE 70; RESP 12; TEMP 98.3; O2SAT 98
[2024-02-26 09:30] VITALS: O2SAT 98
--- NOTE | 2024-02-26 10:41 | NUR ---
OPENING NOTE: PATIENT IS AWAKE AND ALERT IN BED. PATIENT HAVE NO COMPLAINS AT THE MOMENT. CALL LIGHT IS WITHIN REACH
[2024-02-26 11:00] VITALS: BP_SYST 119; PULSE 75; RESP 16; TEMP 98.5; O2SAT 97
--- NOTE | 2024-02-26 11:10 | NUR ---
ROUND: TROUGH VISITS PATIENT
[2024-02-26] MEDS: ACETAMINOPHEN 325 MG TABLET PO PRN (11:25)
[2024-02-26] MEDS ORDERED: LEVO-62 PO (11:30)
[2024-02-26] MEDS ORDERED: METR-154 PO (11:30)
--- NOTE | 2024-02-26 12:30 | NUR ---
ROUND: DR WATSON VISITS
[2024-02-26 12:42] VITALS: BP_SYST 119; PULSE 75; RESP 16; TEMP 98.5; O2SAT 97
--- NOTE | 2024-02-26 13:44 | NUR ---
DISCHARGE NOTE: PATIENT WAS GIVEN DISCARD INSTRUCTIONS, PATIENT ACKNOWLEDGED. IV AND ARM BAND WAS REMOVED. PATIENT TOOK ALL BELONGINGS.
== END 2024-02-26 13:35 | disposition home or self-care (01) | DRG 392 ==
LOC: SED 20:15 → SMU 02-25 02:50
PROVIDERS: ADMIT Preventive Medicine Preventive Medicine/Occupational Environmental Medicine; ATTEND Preventive Medicine Preventive Medicine/Occupational Environmental Medicine
DX: K57.32 Diverticulitis of large intestine without perforation or abscess without bleeding (principal); E88.09 Other disorders of plasma-protein metabolism, not elsewhere classified; Z20.822 Contact with and (suspected) exposure to COVID-19; D25.9 Leiomyoma of uterus, unspecified; E83.52 Hypercalcemia; K59.00 Constipation, unspecified; Z79.899 Other long term (current) drug therapy
CPT/HCPCS: 36415; 80048; 80053; 81000; 81001; 81015; 85025; 87040; 87086; 99285; J1956; J2543; J3490